=== PATIENT | male | born 1960 | race Caucasian/White ===

== ENCOUNTER 2018-12-25 10:13 | Day surgery (SDC) | payer BC ==
[~2018-12-25 10:13] MED LIST: CEFAZOLIN 2 Gram 2 GM/50 ML BAG IVPB ONE; CELECOXIB 100 MG CAPSULE PO ONE; FAMOTIDINE 20MG TABLET PO ONE; MECLIZINE 25 MG TABLET PO ONE; METOCLOPRAMIDE 10 MG TABLET PO ONE; VANCOMYCIN 1GM/200ML PREMIX 1 GM/200 ML PIGGYBACK IVPB ONE
[2018-12-25] MEDS ORDERED: MIDAZOLAM HCL 2MG/2ML VIAL IV ONE (10:14)
[2018-12-25] MEDS ORDERED: DEXAMETHASONE 4 MG/ML 1ML VIAL IVP ONE (10:14)
[2018-12-25] MEDS ORDERED: LIDOCAINE 2% MDV (20MG/ML) 20ML VIAL IV ONE (10:14)
[2018-12-25] MEDS ORDERED: PROPOFOL 10 MG/ML VIAL IV ONE (10:14)
[2018-12-25] MEDS ORDERED: ROPIVACAINE HCL (NAROPIN) /PF 5MG/ML 20ML VIAL IV ONE (10:14)
[2018-12-25] MEDS ORDERED: KETAMINE HCL 100MG/1ML VIAL INJ ONE (10:14)
[2018-12-25] MEDS ORDERED: RINGERS SOLUTION,LACTATED 1,000 ML IV ONE ×2 (11:00→13:10)
[2018-12-25 11:06] LABS: ABO GROUP A; ANTIBODY SCREEN NEGATIVE (NEGATIVE); RH TYPE POSITIVE
[2018-12-25] MEDS ORDERED: BUPIVACAINE 0.5% W/EPI MPF 30 ML VIAL SQ ONE (13:16)
[2018-12-25] MEDS ORDERED: TRANEXAMIC ACID 1,000 MG/10 ML ML IV ONE (13:16)
[2018-12-25] MEDS ORDERED: TRANEXAMIC ACID 1,000 MG/10 ML ML IU ONE (13:16)
[2018-12-25] MEDS ORDERED: BISACODYL 10 MG SUPP RC PRN (14:26)
[2018-12-25] MEDS ORDERED: DIPHENHYDRAMINE HCL 25 MG CAPSULE PO PRN (14:26)
[2018-12-25] MEDS ORDERED: NALOXONE 0.4 MG/1 ML VIAL IVP PRN (14:26)
[2018-12-25] MEDS ORDERED: ACETAMINOPHEN W/ CODEINE 300MG/60MG TABLET PO PRN ×2 (14:26)
[2018-12-25] MEDS ORDERED: ONDANSETRON HCL IV 4 MG/2 ML VIAL IVP PRN (14:26)
[2018-12-25] MEDS ORDERED: KETOROLAC 30 MG/ML VIAL IVP PRN (14:26)
[2018-12-25] MEDS ORDERED: ACETAMINOPHEN 325 MG TAB PO PRN (14:26)
[2018-12-25] MEDS ORDERED: HYDROCODONE/APAP 10/325 TABLET PO PRN (14:26)
[2018-12-25] MEDS ORDERED: AL HYDROX/MAG HYDROX 30ML UD PO PRN (14:26)
[2018-12-25] MEDS ORDERED: TRAMADOL HCL 50 MG TABLET PO PRN (14:26)
[2018-12-25] MEDS ORDERED: MAGNESIUM HYDROXIDE 30 ML UDC PO PRN (14:26)
[2018-12-25] MEDS ORDERED: ZOLPIDEM TARTRATE 5 MG TABLET PO PRN (14:26)
[2018-12-25] MEDS: HYDROCODONE/APAP 10/325 TABLET PO PRN ×2 (16:36→20:33)
[2018-12-25] MEDS: CEFAZOLIN 2 Gram 2 GM/50 ML BAG IVPB SCH (20:56)
[2018-12-25] MEDS: DOCUSATE SODIUM 100 MG CAPSULE PO SCH (21:08)
[2018-12-25] MEDS: POTASSIUM CHLORIDE/D5-0.9%NACL 20 MEQ/1,000 ML BAG IV SCH (22:14)
[2018-12-25 22:18] LABS: HEPATITIS B SURFACE ANTIGEN Nonreactive (Nonreactive); HEPATITIS C VIRUS ANTIBODY Nonreactive (Nonreactive)
[2018-12-25] MEDS: HYDROMORPHONE HCL 2 MG/ML VIAL IM PRN (23:38)
[2018-12-26] MEDS: HYDROCODONE/APAP 10/325 TABLET PO PRN ×4 (02:21→13:35)
[2018-12-26] MEDS: POTASSIUM CHLORIDE/D5-0.9%NACL 20 MEQ/1,000 ML BAG IV SCH ×3 (02:32→16:38)
[2018-12-26] MEDS: HYDROMORPHONE HCL 2 MG/ML VIAL IM PRN ×3 (05:32→14:38)
[2018-12-26] MEDS: CEFAZOLIN 2 Gram 2 GM/50 ML BAG IVPB SCH ×2 (05:37→14:29)
[2018-12-26 06:51] LABS: HEMOGLOBIN 13.3 gm/dl (14.0-18.0)
[2018-12-26 07:02] LABS: BLOOD UREA NITROGEN 16 mg/dL (6-20); CREATININE 0.7 mg/dL (0.7-1.2); EST GLOMERULAR FILTRATION RATE > 60 mL/min; GLUCOSE,RANDOM 135 mg/dL (74-109)
[2018-12-26] MEDS ORDERED: RIVAROXABAN 10 MG TABLET PO SCH (10:00)
[2018-12-26] MEDS ORDERED: LISINOPRIL 20 MG TABLET PO SCH (10:00)
[2018-12-26] MEDS ORDERED: FERROUS SULFATE 325 MG TAB PO SCH (10:00)
[2018-12-26] MEDS: DOCUSATE SODIUM 100 MG CAPSULE PO SCH (10:06)
--- NOTE | 2018-12-26 10:50 | Operative Note ---
DATE OF SURGERY: 12/25/2018 PREOPERATIVE DIAGNOSIS: End-stage arthrosis of the right knee. POSTOPERATIVE DIAGNOSIS: End-stage arthrosis of the right knee. OPERATION: Cemented right total knee arthroplasty using Pedro and Nephew Brooke II components with a size 7 Oxinium femur, a size 7 stemmed tibia baseplate, a 9 mm lipped highly crosslinked tibial insert, and a 35 mm all-plastic patella. STAFF SURGEON: Bowen Armas MD ANESTHESIA: Spinal. PREPARATION: Chloraprep. INDIVIDUAL CONSIDERATIONS: None. PROCEDURE: The patient was taken to the operating room, placed supine on the operating room table. He had a successful induction of a spinal anesthetic. The right lower extremity was prepped and draped in the usual fashion. The limb was elevated and tourniquet was inflated to 250 mmHg. The patient had a midline approach to the knee. Sharp dissection carried down through skin and subcutaneous tissue. Small veins were coagulated with a Bovie. A medial arthrotomy was performed. The patella was everted and the knee was flexed. The patient had exposed bone at all 3 compartments. Fat pad was resected, ACL was sacrificed, and provisional anterior meniscectomies were performed. The capsule was released from the medial proximal tibia. The initial femoral forestry pilot hole was then made freehand. The intramedullary femoral cutting jig was placed. It was cut in 7.0 degrees of valgus and adjusted for rotation and secured with pins for a 10 mm resection. The initial transverse cut was then made. The skin guide was placed in the anterior and posterior forestry pilot holes. It was found that a size 7 would be appropriate. The anterior and posterior cuts followed by chamfer cuts were made. Osteophytes removed, and a size 7 trial was placed and found to fit well. The tibia was brought forward, and the remainder of the meniscal remnants removed with a Bovie. The extraarticular tibial cutting jig was placed. It was cut in neutral with a 3-degree AP slope. It was set for a 9 mm resection keyed off the high lateral side and secured with pins. When cutting the tibia, care was taken to preserve the PCL insertion on the tibia. It was found that a size 7 would fit appropriately. It was adjusted for rotation and secured with pins. With a 9 mm trial and femoral trial, there was excellent motion and stability. Ligamentous balance and rotation alignment and patellofemoral tracking even at this time were normal. Femoral forestry pilot holes were impacted and tibial center keel stamp was impacted, and these trial components were removed. The patient had a thick patella and roughly 9 mm of bone was removed freehand. I was easily able to fit a 35 patella. The 3 forestry pilot holes were then drilled. The tourniquet was let down briefly to get bleeders posteriorly and then placed back up again. The knee was then thoroughly irrigated out with pulsatile Betadine and saline to remove any visual or palpable debris. Bony surfaces were then dried. A size 7 stemmed tibia baseplate was cemented into place followed by impaction of the 9 mm lipped highly crosslinked tibial insert followed by cementing in the size 7 Oxinium femur followed by cementing in the 35 mm patella. The implant surfaces were compressed, excess cement was removed. After the cement had set, there was excellent motion and stability. Ligamentous balance, rotation alignment, and patellofemoral tracking were normal. No lateral release was required. Tourniquet was let down. Hemostasis was obtained with a Bovie. The skin, periosteum, and subcu were infiltrated with 30 mL of 0.5% Marcaine with epinephrine. The capsule was then closed with a running #2 quill, subcu was closed in layers with running 0 quill, skin was closed with andreas. Then 1 g of tranexamic acid was mixed with 30 mL of saline and injected into the knee through a sterile 18-gauge needle, and a sterile bulky compressive JULISSA-type dressing was applied. The patient tolerated the procedure well. Needle and sponge counts were correct. Estimated blood loss was minimal, and he was taken back to recovery in good condition. There were no complications. MELE
--- NOTE | 2018-12-26 11:23 | Rehab Evaluation ---
Patient Information - Patient Information Diagnosis: OA R knee Ordered Treatment: OT Evaluate and Treat Status: Initial Evaluation Surgery: Yes Date of Surgery: 12/25/18 Past Medical/Surgical Hx: PAST MEDICAL/SURGICAL HISTORY Surgery to Affected Area? No Recent Surgery? Past Surgical History TENDON REPAIR LEFT HAND C SCOPES PMH - Respiratory Hx Respiratory Disorders No PMH - Cardiovascular Hx Cardiovascular Disorders Yes Hx Hypertension Yes: GOOD CONTROL ON MEDS Exercise Tolerance Good Comment: HYPERLIPIDEMIA PMH - Neuro Hx Neurological Disorders No PMH - GI Hx Gastrointestinal Disorders Yes Hx Gastroesophageal Reflux Yes: OCCASS WITH PROCESSED TOMATOES PMH - Hx Genitourinary Disorders No PMH - Endocrine Hx Endocrine Disorders No PMH - Musculoskeletal Hx Musculoskeletal Disorders Yes Hx Arthritis Yes: KNEES AND SHOULDERS PMH - Psych Hx Psychiatric Problems No PMH - Hematology/Oncology Hx Hematology/Oncology Yes Disorders Hx Anemia Yes: ON IRON SUPP Premorbid Status: Detail (Prior to Sx, Pt was independent with all ADLs and 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 The bathroom is equipped with a tub/shower and a hand-held shower. He has a FWW.) Precautions: [place], Fall, Other (WBAT R LE) - Time With Patient Total Time Spent With Patient (Min): 25 (1 eval low, 1 self-care) Treatment Procedures: Detail (OT eval: low complexity) Subjective Information - Subjective Information Per Patient (Ok to see per RN Dolly. Pt agreeable to OT eval and Tx, states, "I'm in pain, but I can do it!") Objective Data - Pain Pain Present: Yes Pain Scale Used: Numeric (1 - 10) (08/06, recently had pain meds per RN) - Mental Status Patient Orientation: Oriented x3 - Visual Perception Appears within normal limits for therapeutic activities - ROM Within normal limits (B UEs WNL) - Strength/Tone Within normal limits (B UEs WNL) - Coordination Appears within normal limits for therapeutic activities - Bed Mobility Independent (supine >< EOB) - Transfers Independent (Sit to/from stand from EOB to walker, no LOB or safety concerns.) - Balance Balance Sitting: Good Balance Standing: Good (with occassional support, OT educ. Pt on safe walker use and for off-loading weight, Pt continues to abandon walker stating he doesn't need it.), Fair - Sensation Intact - Gait Detail (Fxl mobility within bedroom with supervision and use of walker. Pt abandons walker in bathroom reporting he doesn't need it, OT educ. on initial use of walker for balance safety d/t R LE pain, Pt does use BSC GB and wall GB for balance during standing toileting. No LOB throughout.) - ADL's/IADL's Detail (OT educates Pt on modified technique for LB dressing, including use of sock aide d/t difficulty with donning R sock, Pt demos MOD I to don/doff underwear, pants, socks, shoes. Verbalizes understanding of osmel hoes wearing schedule. Good- balance during standing pant mgmt. OT educates Pt on benefits of shower chair and GB for shower and how/where to obtain. Educates Pt on home safety, incl. bathroom, laundry, and kitchen safety, as well as mod tech for car TFs if task is difficult. Pt demos and/or verbalizes understanding all tasks.) - Special Tests No Therapy Assessment - Therapy Assessment Detail (Pt tolerates OT eval and Tx well, understands safe walker use, modified techs for ADLs, and verbalizes safety with home tasks. Rec. home DCP with assist as needed.) Patient Education - Patient Education Teaching Topic: Equipment Use, Other (LB dressing techniques) Response: Return Demonstration, Verbalize Understanding Teaching Method: Discussion, Demonstration Teaching Recipient: Patient Barriers To Learning: None Problem List - Problem List Occupational Therapy Problem List: Detail (No further skilled IP OT needs identified.) Goals - Goals Occupational Therapy Goals: No further skilled IP OT needs/goals identified. Prognosis - Prognosis Good Plan - Plan Occupational Therapy Plan: No further skilled IP OT needs identified. [place] IP OT services. Thank you for this referral.
--- NOTE | 2018-12-26 11:50 | Rehab Evaluation ---
Patient Information - Patient Information Diagnosis: OA R knee Ordered Treatment: PT Evaluate and Treat Status: Initial Evaluation Surgery: Yes (R TKA) Date of Surgery: 12/25/18 Past Medical/Surgical Hx: PAST MEDICAL/SURGICAL HISTORY Surgery to Affected Area? No Recent Surgery? Past Surgical History TENDON REPAIR LEFT HAND C SCOPES PMH - Respiratory Hx Respiratory Disorders No PMH - Cardiovascular Hx Cardiovascular Disorders Yes Hx Hypertension Yes: GOOD CONTROL ON MEDS Exercise Tolerance Good Comment: HYPERLIPIDEMIA PMH - Neuro Hx Neurological Disorders No PMH - GI Hx Gastrointestinal Disorders Yes Hx Gastroesophageal Reflux Yes: OCCASS WITH PROCESSED TOMATOES PMH - Hx Genitourinary Disorders No PMH - Endocrine Hx Endocrine Disorders No PMH - Musculoskeletal Hx Musculoskeletal Disorders Yes Hx Arthritis Yes: KNEES AND SHOULDERS PMH - Psych Hx Psychiatric Problems No PMH - Hematology/Oncology Hx Hematology/Oncology Yes Disorders Hx Anemia Yes: ON IRON SUPP Premorbid Status: Detail (Prior to Sx, Pt was independent with all ADLs 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 He stated that he does not need to use the second floor when returning home. The bathroom is equipped with a tub/shower and a hand-held shower. There is also a standard height toilet and no grab bars. He has a front-wheeled walker.) Precautions: [place], Fall, Other (WBAT R LE) - Time With Patient Total Time Spent With Patient (Min): 30 Treatment Procedures: Detail (Initial evaluation; low complexity The patient was left in bed with his call light and bedside table within reach. The nursing staff was notified of his position.) Subjective Information - Subjective Information Per Patient (Patient reported that he had pain in his R knee at the time of the therapy session.) Objective Data - Pain Pain Present: Yes (R knee) - Mental Status Patient Orientation: Oriented x3 - Visual Perception Appears within normal limits for therapeutic activities - ROM Not within normal limits (R knee ROM limited as expected s/p R TKA procedure. R hip and ankle and L LE ROM is within normal limits for functional activities.) - Strength/Tone Not within normal limits (R knee strength is limited as expected s/p R TKA procedure. R ankle and hip, and L LE strength is within normal limits for functional activites.) - Coordination Appears within normal limits for therapeutic activities - Bed Mobility Independent (Patient was independent in all bed mobility tasks.) - Transfers Independent (Patient was independent in supine to sit, sit to stand, stand to sit, and sit to supine transfers.) - Balance Balance Sitting: Good Balance Standing: Good - Sensation Intact - Gait Detail (Patient ambulated 60 feet with a standard walker independently using WBAT on the R LE. He was able to complete stair training over 4 stairs and demonstrated correct technique.) - ADL's/IADL's Detail Therapy Assessment - Therapy Assessment Detail (Patient presents with pain, and decreased ROM and strength in the R knee that is expected s/p R TKA procedure. He has met all inpatient therapy goals at this time.) Problem List - Problem List Physical Therapy Problem List: Detail (1. Pain in R knee 2. Decreased R knee ROM 3. Decreased R knee strength 4. Gait abnormalities) Occupational Therapy Problem List: Detail (No further skilled IP OT needs identified.) Goals - Goals Physical Therapy Goals: Patient has met all inpatient therapy goals at this time. Occupational Therapy Goals: No further skilled IP OT needs/goals identified. Plan - Plan Physical Therapy Plan: No further inpatient PT is needed at this time as patient has met all inpatient goals. He will continue with PT following discharge. Occupational Therapy Plan: No further skilled IP OT needs identified. [place] IP OT services. Thank you for this referral.
== END 2018-12-26 16:29 | disposition home health service (06) ==
LOC: SUR 10:13 → MEDSURG 14:58 → SUR 12-26 16:29
PROVIDERS: ATTEND Orthopaedic Surgery
DX: M17.11 Unilateral primary osteoarthritis, right knee (principal); I10 Essential (primary) hypertension; E78.00 Pure hypercholesterolemia, unspecified
CPT/HCPCS: 27447; 01402; 64447; 85018; 85014; 80048; 36416; 82948; 87390; 86900; 86901; 86850; J1885; J1170 ×2; J0690 ×2; J3490 ×3; J2795; J3370; 76942; J7120

== ENCOUNTER 2019-02-12 06:59 | Day surgery (SDC) | payer BC ==
[~2019-02-12 06:59] MED LIST changes: +RINGERS SOLUTION,LACTATED 1,000 ML IV ONE
[2019-02-12] MEDS ORDERED: PROPOFOL 10 MG/ML VIAL IV ONE (07:00)
[2019-02-12] MEDS ORDERED: ROPIVACAINE HCL (NAROPIN) /PF 5MG/ML 20ML VIAL IV ONE (07:00)
[2019-02-12] MEDS ORDERED: LIDOCAINE 2% MDV (20MG/ML) 20ML VIAL IV ONE (07:00)
[2019-02-12] MEDS ORDERED: DEXAMETHASONE 4 MG/ML 1ML VIAL IVP ONE (07:00)
[2019-02-12] MEDS ORDERED: MIDAZOLAM HCL 2MG/2ML VIAL IV ONE (07:00)
[2019-02-12 07:45] LABS: ABO GROUP A; ANTIBODY SCREEN NEGATIVE (NEGATIVE); RH TYPE POSITIVE
[2019-02-12] MEDS ORDERED: BUPIVACAINE 0.5% W/EPI MPF 30 ML VIAL IU ONE (09:29)
[2019-02-12] MEDS ORDERED: TRANEXAMIC ACID 1,000 MG/10 ML ML IV ONE (09:30)
[2019-02-12] MEDS ORDERED: TRANEXAMIC ACID 1,000 MG/10 ML ML IU ONE (09:30)
[2019-02-12] MEDS ORDERED: RINGERS SOLUTION,LACTATED 1,000 ML IV ONE (09:32)
[2019-02-12] MEDS ORDERED: KETOROLAC 30 MG/ML VIAL IVP PRN (10:30)
[2019-02-12] MEDS ORDERED: AL HYDROX/MAG HYDROX 30ML UD PO PRN (10:30)
[2019-02-12] MEDS ORDERED: TRAMADOL HCL 50 MG TABLET PO PRN (10:30)
[2019-02-12] MEDS ORDERED: HYDROCODONE/APAP 10/325 TABLET PO PRN (10:30)
[2019-02-12] MEDS ORDERED: BISACODYL 10 MG SUPP RC PRN (10:30)
[2019-02-12] MEDS ORDERED: DIPHENHYDRAMINE HCL 25 MG CAPSULE PO PRN (10:30)
[2019-02-12] MEDS ORDERED: ACETAMINOPHEN W/ CODEINE 300MG/60MG TABLET PO PRN ×2 (10:30)
[2019-02-12] MEDS ORDERED: ONDANSETRON HCL IV 4 MG/2 ML VIAL IVP PRN (10:30)
[2019-02-12] MEDS ORDERED: ZOLPIDEM TARTRATE 5 MG TABLET PO PRN (10:30)
[2019-02-12] MEDS ORDERED: MAGNESIUM HYDROXIDE 30 ML UDC PO PRN (10:30)
[2019-02-12] MEDS ORDERED: NALOXONE 0.4 MG/1 ML VIAL IVP PRN (10:30)
[2019-02-12] MEDS ORDERED: ACETAMINOPHEN 325 MG TAB PO PRN (10:30)
[2019-02-12] MEDS: HYDROCODONE/APAP 10/325 TABLET PO PRN ×3 (13:25→21:33)
[2019-02-12] MEDS: POTASSIUM CHLORIDE/D5-0.9%NACL 20 MEQ/1,000 ML BAG IV SCH ×2 (13:27→21:27)
--- NOTE | 2019-02-12 15:59 | Rehab Evaluation ---
Patient Information - Patient Information Diagnosis: L knee DJD Ordered Treatment: PT Evaluate and Treat Status: Initial Evaluation Surgery: Yes (L TKA) Date of Surgery: 02/12/19 Past Medical/Surgical Hx: PAST MEDICAL/SURGICAL HISTORY Past Surgical History RTKA 11-29-18 TENDON REPAIR LEFT HAND C SCOPES PMH - Respiratory Hx Respiratory Disorders No PMH - Cardiovascular Hx Cardiovascular Disorders Yes Hx Hypertension Yes: GOOD CONTROL ON MEDS Exercise Tolerance Fair Comment: HYPERLIPIDEMIA PMH - Neuro Hx Neurological Disorders No PMH - GI Hx Gastrointestinal Disorders Yes Hx Gastroesophageal Reflux Yes: OCCASS WITH PROCESSED TOMATOES PMH - Hx Genitourinary Disorders No PMH - Endocrine Hx Endocrine Disorders No PMH - Musculoskeletal Hx Musculoskeletal Disorders Yes Hx Arthritis Yes: KNEES AND SHOULDERS PMH - Psych Hx Psychiatric Problems No PMH - Hematology/Oncology Hx Hematology/Oncology Yes Disorders Hx Anemia Yes: ON IRON SUPP Premorbid Status: Detail (The patient was independent with all mobility prior to surgery.) Social History: Detail (The patient lives with spouse in a 2 story house with 4 steps at the enterance and no handrail. The patient will not be using second floor following surgery. The bathroom is equipped with : a tub/shower combination, hand held shower head and standard toilet. There are no grab bars in the bathroom. The patient has a standard walker and single point cane.) Precautions: [place], Fall, Other (WBAT on the L LE) - Time With Patient Total Time Spent With Patient (Min): 30 Treatment Procedures: Detail (Initial Evaluation, low complexity.) Subjective Information - Subjective Information Per Patient (The patient had no complaints of pain.) Objective Data - Mental Status Patient Orientation: Oriented x3 - Visual Perception Appears within normal limits for therapeutic activities - ROM Not within normal limits (The patient's L knee AROM is limited s/p surgery. All other LE AROM is WFL.) - Strength/Tone Not within normal limits (The patient's LE strength was not tested s/p surgery however is functional.) - Bed Mobility Independent (The patient was independent with supine to and from sit transfer and scooting up in bed.) - Transfers Independent (The patient was independent with sit to and from stand transfer.) - Balance Balance Sitting: Good Balance Standing: Good - Sensation Intact - Gait Detail (The patient ambulated with standard walker a distance of 85 feet x 1 WBAT on the L LE with independent/supervision for safety only.) Therapy Assessment - Therapy Assessment Detail (The patient was independent with bed mobility , transfer and ambulation on level surfaces. The patient will be seen for 1-2 PT sessions to complete inpt. PT goals.) Problem List - Problem List Physical Therapy Problem List: Detail (Decreased L knee AROM and L LE strength) Goals - Goals Physical Therapy Goals: 1) The patient will ambulate on stairs using proper technique with supervision for safety only. 2) The patient will be independent with TKA HEP. Prognosis - Prognosis Good Plan - Plan Physical Therapy Plan: PT 1-2 sessions for ambulation on stairs and instruction in HEP.
[2019-02-12] MEDS: CEFAZOLIN 2 Gram 2 GM/50 ML BAG IVPB SCH (17:30)
[2019-02-12] MEDS: DOCUSATE SODIUM 100 MG CAPSULE PO SCH (21:31)
[2019-02-12] MEDS: HYDROMORPHONE HCL 2 MG/ML VIAL IM PRN (23:38)
[2019-02-13] MEDS: HYDROCODONE/APAP 10/325 TABLET PO PRN ×4 (02:57→14:44)
[2019-02-13] MEDS: POTASSIUM CHLORIDE/D5-0.9%NACL 20 MEQ/1,000 ML BAG IV SCH (04:03)
[2019-02-13 06:57] LABS: HEMATOCRIT 36.3 % (42.0-52.0); HEMOGLOBIN 11.7 gm/dl (14.0-18.0)
[2019-02-13 07:17] LABS: BLOOD UREA NITROGEN 13 mg/dL (6-20); CREATININE 0.6 mg/dL (0.7-1.2); EST GLOMERULAR FILTRATION RATE > 60 mL/min; GLUCOSE,RANDOM 211 mg/dL (74-109)
[2019-02-13] MEDS: CEFAZOLIN 2 Gram 2 GM/50 ML BAG IVPB SCH ×2 (08:09)
--- NOTE | 2019-02-13 08:32 | Operative Note ---
DATE OF SURGERY: 02/12/2019 PREOPERATIVE DIAGNOSIS: End-stage arthrosis of the left knee. POSTOPERATIVE DIAGNOSIS: End-stage arthrosis of the left knee. OPERATION: Cemented left total knee arthroplasty using Pedro and Nephew Legion components with a size 7 Oxinium femur, a size 7 stemmed tibia baseplate, a 9 mm lipped highly crosslinked tibial insert, and a 35 mm all-plastic patella. STAFF SURGEON: Bowen Armas MD ANESTHESIA: Spinal. PREPARATION: Chloraprep. INDIVIDUAL CONSIDERATIONS: None. PROCEDURE: The patient was taken to the operating room, placed supine on the operating room table. He had a successful induction of a spinal anesthetic. The left lower extremity was prepped and draped in the usual fashion. The limb was elevated and tourniquet was inflated to 250 mmHg. The patient had a midline approach to the knee. Sharp dissection carried down through skin and subcutaneous tissue. Small veins were coagulated with a Bovie. A medial arthrotomy was performed. The patella was everted and the knee was flexed. The patient had exposed bone in all 3 compartments. Fat pad was resected, ACL was sacrificed, and provisional anterior meniscectomies were performed. The capsule was released from the medial proximal tibia. The initial femoral aeroplane pilot hole was then made freehand. The intramedullary femoral cutting jig was placed. It was cut in 7.0 degrees of valgus and adjusted for rotation and secured with pins for a 10 mm resection. The initial transverse cut was then made. The skin guide was placed in 3 degrees of external rotation and the aeroplane pilot holes were impacted. It was found that a size 7 would be appropriate. The anterior and posterior cuts followed by chamfer cuts were made. Osteophytes removed, and a size 7 trial was placed and found to fit well. The tibia was brought forward, and the remainder of the meniscal remnants removed with a Bovie. The extraarticular tibial cutting jig was placed. It was cut in neutral with a 3-degree AP slope. It was set for a 9 mm resection keyed off the high lateral side and secured with pins. When cutting the tibia, care was taken to preserve the PCL insertion on the tibia. Using the guide, it was found that a size 7 would be appropriate after removing osteophytes. It was adjusted for rotation and secured with pins. With a 9 mm trial and femoral trial, there was excellent motion and stability. Ligamentous balance and rotation alignment were thought to be normal. Femoral aeroplane pilot holes were impacted and the tibial keel stamp was impacted, and these trial components were removed. The patient had a thick patella and roughly 9 mm of bone was removed freehand. I could easily fit a 35 patella, and the 3 aeroplane pilot holes were drilled. The tourniquet was let down briefly to get bleeders posteriorly and then placed back up again. The knee was then thoroughly irrigated out with pulsatile Betadine and saline to remove any visual or palpable debris. Bony surfaces were dried with a CarboJet, and a size 7 stemmed tibia baseplate was cemented into place followed by impaction of the 9 mm lipped highly crosslinked tibial insert followed by cementing in the size 7 Oxinium femur followed by cementing in the 35 mm patella. The implant surfaces were compressed, excess cement was removed. After the cement had set, there was excellent motion and stability. Ligamentous balance, rotation alignment, and patellofemoral tracking were normal. No lateral release was required. Final irrigation to remove any visual or palpable debris. Tourniquet was let down. Hemostasis was obtained with a Bovie. The capsule was then closed with a running #2 quill, subcu was closed in layers with running 0 quill, skin was closed with andreas. Prior to closure, I did take 30 mL of 0.5% Marcaine with epinephrine and I infiltrated the skin and subcutaneous tissue and periosteum. After closure, we mixed 1 g of tranexamic acid with 30 mL of saline and injected into the knee through a sterile 18-gauge needle, and a sterile bulky compressive JULISSA-type dressing was applied. The patient tolerated the procedure well. Needle and sponge counts were correct. Estimated blood loss was minimal, and he was taken back to recovery in good condition. There were no complications. MELE
[2019-02-13] MEDS: DOCUSATE SODIUM 100 MG CAPSULE PO SCH (09:33)
[2019-02-13] MEDS: HYDROMORPHONE HCL 2 MG/ML VIAL IM PRN ×2 (09:40→14:45)
--- NOTE | 2019-02-13 09:41 | Rehab Evaluation ---
Patient Information - Patient Information Diagnosis: L knee DJD Ordered Treatment: OT Evaluate and Treat Status: Initial Evaluation Surgery: Yes (L TKA) Date of Surgery: 02/12/19 Past Medical/Surgical Hx: PAST MEDICAL/SURGICAL HISTORY Past Surgical History RTKA 11-29-18 TENDON REPAIR LEFT HAND C SCOPES PMH - Respiratory Hx Respiratory Disorders No PMH - Cardiovascular Hx Cardiovascular Disorders Yes Hx Hypertension Yes: GOOD CONTROL ON MEDS Exercise Tolerance Fair Comment: HYPERLIPIDEMIA PMH - Neuro Hx Neurological Disorders No PMH - GI Hx Gastrointestinal Disorders Yes Hx Gastroesophageal Reflux Yes: OCCASS WITH PROCESSED TOMATOES PMH - Hx Genitourinary Disorders No PMH - Endocrine Hx Endocrine Disorders No PMH - Musculoskeletal Hx Musculoskeletal Disorders Yes Hx Arthritis Yes: KNEES AND SHOULDERS PMH - Psych Hx Psychiatric Problems No PMH - Hematology/Oncology Hx Hematology/Oncology Yes Disorders Hx Anemia Yes: ON IRON SUPP Premorbid Status: Detail (The patient was independent with all mobility prior to surgery. He and spouse share all home mgmt, meal prep and laundry tasks.) Social History: Detail (The patient lives with spouse in a 2 story house with 4 steps at the entrance and no handrail. The patient will not be using second floor following surgery. The bathroom is equipped with : a tub/shower combination, hand held shower head and standard toilet. There are no grab bars in the bathroom. The patient has a standard walker and single point cane.) Precautions: [place], Fall, Other (WBAT on the L LE) - Time With Patient Total Time Spent With Patient (Min): 40 Treatment Procedures: Detail (OT eval low complexity) Subjective Information - Subjective Information Per Patient Objective Data - Pain Pain Present: Yes (08/06) - Mental Status Patient Orientation: Oriented x3 - Visual Perception Appears within normal limits for therapeutic activities - ROM Within normal limits (Ariel UE AROM WNL) - Strength/Tone Within normal limits (Ariel UE strength WNL) - Coordination Appears within normal limits for therapeutic activities - Bed Mobility Independent (Ind with supine to sit and sit to supine.) - Transfers Independent (Ind with sit to stand from EOB and chair heights.) - Balance Balance Sitting: Good Balance Standing: Good - Sensation Intact - Gait Detail (Pt ambulating in room with walker and supervision.) - ADL's/IADL's Detail (Reviewed modified LE dressing techniques as pt recently had right knee replaced. He was able to demonstrate doffing briefs and slipper sock and donning osmel sock (with assist), underwear, shorts, socks and slip on tennis shoes. Reviewed shower safety, pt verbalized understanding.) Therapy Assessment - Therapy Assessment Detail (Pt is Ind with modified LE dressing techniques.) Problem List - Problem List Physical Therapy Problem List: Detail (Decreased L knee AROM and L LE strength) Occupational Therapy Problem List: Detail (No current IP OT problems identified.) Goals - Goals Physical Therapy Goals: 1) The patient will ambulate on stairs using proper technique with supervision for safety only. 2) The patient will be independent with TKA HEP. Occupational Therapy Goals: No current IP OT goals identified. Prognosis - Prognosis Good Plan - Plan Physical Therapy Plan: PT 1-2 sessions for ambulation on stairs and instruction in HEP. Occupational Therapy Plan: Pt is discharged from IP OT at this time. Thank you for this referral.
[2019-02-13] MEDS ORDERED: FERROUS SULFATE 325 MG TAB PO SCH (10:00)
[2019-02-13] MEDS ORDERED: RIVAROXABAN 10 MG TABLET PO SCH (10:00)
[2019-02-13] MEDS ORDERED: LISINOPRIL 20 MG TABLET PO SCH (10:00)
--- NOTE | 2019-02-13 10:47 | Physical Therapy Tx Note ---
Physical Therapy Tx Note - Treatment Note Tolerated: Good Total Time Spent With Patient: 25 Physical Therapy Tx Note: Detail (Patient was supine in bed upon [employer] arrival. Patient states his left knee is painful this morning. Patient transferred supine to sit independently. Patient transferred sit to and from stand SBA x1. Patient donned shoes independently. Patient ambulated 266 feet with standard walker SBA x1. Patient descended and ascended 3 steps with using stairwell railing CGA x1. Patient doffed shoes independently. Patient transferred sit to supine independently. Patient performed the following exercises x5 reps each: ankle pumps, glut squeezes, SLR, quad sets, heel slides, and hamstring sets. Patient tolerated treatment well. Patient reports left knee painful after treatment. Patient was left supine in bed with call light within reach. Pat ient displays good understanding of ambulation, stair climbing, and HEP. Patient discharged from inpatient PT at this time as all goals are met.) Physical Therapy Problem List: Detail (Decreased L knee AROM and L LE strength) Physical Therapy Goals: 1) The patient will ambulate on stairs using proper technique with supervision for safety only. Met. 2) The patient will be independent with TKA HEP. Met. Prognosis: Good Physical Therapy Plan: Patient discharged from inpatient PT at this time as all goals are met.
== END 2019-02-13 17:10 | disposition home health service (06) ==
LOC: SUR 06:59 → MEDSURG 11:24 → SUR 02-13 17:10
PROVIDERS: ATTEND Orthopaedic Surgery
DX: M17.12 Unilateral primary osteoarthritis, left knee (principal); I10 Essential (primary) hypertension; E78.00 Pure hypercholesterolemia, unspecified; F17.210 Nicotine dependence, cigarettes, uncomplicated
CPT/HCPCS: 76942; 80048; 85014; 85018; 86850; 86900; 86901; C1776; J1885; J3370; J7120